=== PATIENT | female | born 1980 | race Caucasian/White ===

== ENCOUNTER → 2017-01-30 09:37 | Outpatient (CLI) | payer MEDICARE ==
[~2017-01-30 09:37] MED LIST: BIOTIN5 MG PO; DESERYL100 MG PO; EFFEXOR XR150 MG PO; HYDROCODONE-APA1 TAB PO; LAMICTAL200 MG PO; MELATONIN10 M1 PO; MIRALAX17 GM PO; NEXIUM40 MG PO; REGLAN10 MG PO; VISTARIL50 MG PO; VITAMIN D2000 UNIT PO; ZANTAC150 MG PO
[2017-03-05 11:01] VITALS: BMI 43.6
== END | disposition home or self-care (01) ==
LOC: D.RAD 09:37
DX: K21.9 Gastro-esophageal reflux disease without esophagitis (principal)

== ENCOUNTER → 2017-03-03 10:01 | Day surgery (SDC) | payer MEDICARE ==
[2017-03-05 11:01] VITALS: BMI 43.6
== END | disposition home or self-care (01) ==
LOC: D.OPS 10:01
DX: K21.9 Gastro-esophageal reflux disease without esophagitis (principal); R13.10 Dysphagia, unspecified

== ENCOUNTER 2017-03-05 05:20 | Day surgery (SDC) | payer MEDICARE ==
[2017-03-03 12:04] LABS: HEMATOCRIT 38.7 % (36.0-48.0); HEMOGLOBIN 12.3 g/dL (12-16); MCH 28.2 pg (26.0-34.0); MCHC 31.8 g/dL (31.0-37.0); MCV 88.8 fL (80.0-100.0); MEAN PLATELET VOLUME 9.2 fL (7.4-10.4); RBC 4.36 10x6/uL (4.00-5.40); RDW 13.1 % (11.5-14.5); WBC 5.7 10x3/uL (4.8-10.8)
[2017-03-05] VITALS (13 sets, daily range): BP systolic 97–143; BP diastolic 60–89; Ht 167.6 cm; Wt 122.7 kg
[~2017-03-05] VITALS: Ht 167.6 cm; Wt 122.7 kg
[~2017-03-05 05:20] MED LIST changes: -HYDROCODONE-APA1 TAB PO; -REGLAN10 MG PO
[2017-03-05 06:51] LABS: HCG URINE NEGATIVE (NEGATIVE)
--- NOTE | 2017-03-05 10:19 | NUR ---
DR ALBERTO CONSULTED ABOUT THE PATIENTS CONTINUED PAIN AND ORDERED NO MORE NARCOTICS IN RR DUE TO SEDATION
[2017-03-06] VITALS: BP 116/69
[2017-03-06 04:00] VITALS: BP 120/70
[2017-03-06 06:33] LABS: BASOPHILS 0 % (0-2); EOSINOPHILS 0 % (0-7); HEMATOCRIT 36.8 % (36.0-48.0); HEMOGLOBIN 11.8 g/dL (12-16); IMMATURE GRANULOCYTES 0.2 % (0-5); LYMPHOCYTES 9.9 % (15-50); MCH 28.4 pg (26.0-34.0); MCHC 32.1 g/dL (31.0-37.0); MCV 88.7 fL (80.0-100.0); MEAN PLATELET VOLUME 9.5 fL (7.4-10.4); MONOCYTES 4.7 % (2-11); NEUTROPHILS 85.2 % (40-80); PLATELET COUNT 257 10x3/uL (130-400); RBC 4.15 10x6/uL (4.00-5.40); RDW 13.2 % (11.5-14.5)
[2017-03-06 06:50] LABS: CALC OSMOLALITY 274 mosm/kg (275-300); CARBON DIOXIDE 30.3 mmol/L (21.0-32.0); CHLORIDE - SERUM 103 mmol/L (98-107); CREATININE - SERUM 0.7 mg/dL (0.6-1.3); GLUCOSE 115 mg/dL (74-106); POTASSIUM - SERUM 4.4 mmol/L (3.5-5.1); SODIUM 137 mmol/L (136-145); UREA NITROGEN 12 mg/dL (7-18); eGFR NON AFRICAN AMERICAN > 90 mL/min (90-120)
[2017-03-06 08:18] VITALS: BP 117/74
[2017-03-06 11:40] VITALS: BP 118/68
[2017-03-06] MEDS ORDERED: HYDROCODONE-APA1 TAB PO (12:48)
[2017-03-06] MEDS ORDERED: REGLAN10 MG PO (12:49)
--- NOTE | 2017-03-06 14:40 | NUR ---
D/C IV WITH CATHETER INTACT. DISCHARGE INSTRUCTIONS COMPLETED WITH PATIENT. SHE VERBALIZED UNDERSTANDING AND DENIES ANY QUESTIONS. PATIENT LEFT VIA WHEELCHAIR.
--- NOTE | 2017-03-10 15:39 | OP ---
PATIENT NAME: JOCELYNN BARROSO MEDICAL RECORD: [id number] :78 LOCATION:[facility] ADMISSION DATE: SURGEON: LARRY DONIS MD DATE OF OPERATION: 03/05/2017 PREOPERATIVE DIAGNOSES: 1. Gastroesophageal reflux disease. 2. Anxiety disorder. POSTOPERATIVE DIAGNOSES: 1. Gastroesophageal reflux disease. 2. Anxiety disorder. PROCEDURE: Laparoscopic Martin fundoplication. SURGEON: Larry Donis MD REPORT OF PROCEDURE: The patient's abdomen was prepped and draped in sterile fashion. A Veress needle was inserted in the left upper quadrant and the abdomen was insufflated. An 11-mm Visiport trocar was then inserted in the midline just above the umbilicus. The Veress needle was visualized and there was no sign of any injury to bowel or surrounding structures. An 11-mm trocar was then placed in the left subcostal region. A 5-mm trocar was placed in the epigastrium. A 5-mm trocar was placed in the right lateral abdomen and a final 5-mm trocar was placed in the left lateral abdomen. Liver retractor was inserted and the left lobe of the liver was elevated. We then performed our dissection starting on the lesser curvature of the stomach, taking down the lesser omentum. This was done using Harmonic scalpel. We continued our dissection up to the right side of the right eugene. This was dissected free and we continued our dissection up into the thoracic cavity. We performed this as far anteriorly and posteriorly as possible. We then started on the greater curvature of the stomach and took down the short gastric using Harmonic scalpel. This was continued all the way to the left side of the right eugene. Once we had this freed up, we were able to get up into the thoracic cavity and get a 360-degree inspection of the esophagus. The esophageal hiatus was reapproximated with interrupted 0 TiCron times 2. We then performed a 360-degree posterior wrap of the fundus of the stomach around the distal esophagus. The wrap was performed with interrupted 0 Polydek times 3 with the top and the bottom suture incorporating a bite of the esophagus. The wrap appeared to be intact and there was no sign of any active bleeding. At this point, the liver retractor was removed. We irrigated out the area and assured there was no sign of any bleeding. At this point, the 11-mm trocar site fascia was closed with 0 Vicryl using a Guru-Flower suture passer device. The ports and insufflation were then removed. The skin incisions were infused with a total of 10 mL of 0.25% Marcaine with epinephrine. The skin incisions were then all closed with subcutaneous 5-0 Monocryl and dressed appropriately. COMPLICATIONS: None. CONDITION: Stable. ANESTHESIA: General endotracheal and local. BLOOD LOSS: Minimal. OPERATIVE REPORT [id number] JOCELYNN BARROSO TRANSINT:[id number] Voice Confirmation ID: [id number] DOCUMENT ID: [id number] LARRY DONIS MD at 1539 CC: ELENA ROSENBAUM MD and PATRIA OTERO MD [id number] DICTATION DATE: 03/05/17 0948 [employer]IAL WORKER: 03/05/17 1312 [facility] 03/06/17 [id number] [place] [address]
== END 2017-03-06 14:56 | disposition home or self-care (01) ==
LOC: D.OPS 05:20 → D.PAN 07:30 → D.MS 10:43 → D.OPS 11:30
PROVIDERS: Anesthesiology; Surgery
DX: K21.9 Gastro-esophageal reflux disease without esophagitis (principal); F41.9 Anxiety disorder, unspecified; Z01.812 Encounter for preprocedural laboratory examination